=== PATIENT | male | born 1980 | race Two or more races ===

== ENCOUNTER 2022-02-20 10:50 | Emergency (ER) | payer OTHER ==
[2022-02-20 10:57] VITALS: BP 155/89; PULSE 73; RESP 20; TEMP 97.4; BMI 31.0
[2022-02-20] MEDS ORDERED: KETOROLAC TROMETHAMINE 30 MG/1 ML VIAL IM ONE (11:39)
[2022-02-20] MEDS ORDERED: KETOROLAC TROMETHAMINE 30 MG/1 ML VIAL ONE (12:10)
[2022-02-20] MEDS ORDERED: IBUPROFEN 600 MG TABLET (FP) PO ONE ×2 (12:35→12:36)
== END 2022-02-20 12:30 | disposition home or self-care (01) ==
LOC: JERFT 10:50
DX: S83.92XA Sprain of unspecified site of left knee, initial encounter (principal); Y99.8 Other external cause status
CPT/HCPCS: 73562-TC-LT-FY; 99283-25

== ENCOUNTER 2022-03-13 08:55 | Day surgery (SDC) | payer OTHER ==
[2022-03-10 16:27] VITALS: BMI 32.1
[2022-03-13] MEDS ORDERED: EPINEPHrine 1:1,000 1,000 MCG/ML ML ONE (10:42)
[2022-03-13] MEDS ORDERED: BUPIVACAINE HCL/PF 0.25% (2.5MG/ML) 10 ML VIAL ONE (10:42)
[2022-03-13] MEDS ORDERED: PROPOFOL 20 ML ONE (10:50)
[2022-03-13] MEDS ORDERED: MIDAZOLAM HCL 2 MG/2 ML SINGLE DOSE VIAL ONE (10:50)
[2022-03-13] MEDS ORDERED: SUCCINYLCHOLINE CHLORIDE 200 MG/10 ML SYRINGE ONE (10:51)
[2022-03-13] MEDS ORDERED: oxyCODONE HCL 5 MG TABLET PO PRN (12:22)
[2022-03-13] MEDS ORDERED: ONDANSETRON 4 MG/2 ML VIAL IVPUSH PRN (12:22)
[2022-03-13] MEDS ORDERED: PROMETHAZINE HCL 25 MG/1 ML VIAL IVPUSH PRN (12:22)
[2022-03-13] MEDS ORDERED: LACTATED RINGERS SOLUTION 1,000 ML IV SCH (12:30)
[2022-03-13] MEDS ORDERED: FENTANYL CITRATE/PF 50 MCG/ML VIAL ONE ×2 (12:32→12:45)
[2022-03-13 13:02] VITALS: RESP 18
[2022-03-13] MEDS ORDERED: oxyCODONE HCL 5 MG TABLET ONE (13:42)
[2022-03-13 14:07] VITALS: TEMP 97.8
[2022-03-13 14:10] VITALS: BP 126/74; PULSE 75
== END 2022-03-13 15:15 | disposition home or self-care (01) ==
LOC: FASU 08:55
PROVIDERS: ATTEND Orthopaedic Surgery Sports Medicine
PROC: 0SBD4ZX Excision of Left Knee Joint, Percutaneous Endoscopic Approach, Diagnostic (ICD-10-PCS; principal; 2022-03-13 11:32)
DX: S83.212A Bucket-handle tear of medial meniscus, current injury, left knee, initial encounter (principal); X58.XXXA Exposure to other specified factors, initial encounter; Y93.9 Activity, unspecified; Y92.9 Unspecified place or not applicable
CPT/HCPCS: 94760

== ENCOUNTER 2023-04-26 23:41 | Emergency (ER) | payer OTHER ==
[2023-04-26 23:47] VITALS: BP 134/85; PULSE 117; RESP 20; TEMP 98.8; BMI 32.8
[2023-04-27] MEDS ORDERED: DIPHTH,PERTUSS(ACELL),TET 0.5 ML DISP.SYRIN IM ONE ×2 (00:07→00:13)
== END 2023-04-27 05:05 | disposition home or self-care (01) ==
LOC: JER 23:41
PROC: 0HQFXZZ Repair Right Hand Skin, External Approach (ICD-10-PCS; principal; 2023-04-26)
PROC: 3E0234Z Introduction of Serum, Toxoid and Vaccine into Muscle, Percutaneous Approach (ICD-10-PCS; 2023-04-27)
DX: S61.411A Laceration without foreign body of right hand, initial encounter (principal); R47.81 Slurred speech; F10.929 Alcohol use, unspecified with intoxication, unspecified; W26.0XXA Contact with knife, initial encounter; Y90.9 Presence of alcohol in blood, level not specified
CPT/HCPCS: 12002-25; 90471; 90715; 99282-25